=== PATIENT | female | born 1985 | race Hispanic/Latino ===

== ENCOUNTER 2024-04-12 06:36 | Day surgery (SDC) | payer OTHER ==
[~2024-04-12] VITALS: Ht 154.9 cm; Wt 154.9 kg
[~2024-04-12 06:36] MED LIST: ALL DAY ALLERGY10 M4 PO; ARNUITY ELLIPT50 MCG; CYCLOBENZAPRINE10 MG PO; LEVOTHYROXINE75 MC1 PO; MIDAZOLAM HCL 5 MG/5 ML VIAL IV PRN; OMEPRAZOLE20 MG PO; VITAMIN D350 MC3 PO; fentaNYL citrate 100 MCG/2 ML VIAL IV PRN
[2024-04-12] MEDS ORDERED: MIDAZOLAM HCL 5 MG/5 ML VIAL ONE (06:39)
[2024-04-12] MEDS ORDERED: fentaNYL citrate 100 MCG/2 ML VIAL ONE (06:39)
[2024-04-12 06:54] VITALS: BP 126/65
[2024-04-12 06:56] VITALS: BP 126/65
[2024-04-12] MEDS ORDERED: LIDOCAINE HCL 1% 5 ML SDV INJ ONE (07:00)
[2024-04-12] MEDS ORDERED: IBLOOD GLUCOSE TEST STRIP 1 EA TEST VI PRN (07:00)
[2024-04-12] MEDS ORDERED: LACTATED RINGER'S 1,000 ML IV SCH (07:00)
--- NOTE | 2024-04-12 07:18 | NUR ---
SALAS AT BS. PT COMFORTABLE.
--- NOTE | 2024-04-12 07:36 | NUR ---
PT NOT AVAILABLE FOR VISIT. PROVIDED PRAYER.
--- NOTE | 2024-04-12 07:57 | NUR ---
04/12/24 0757 Jessica Bray PT TO PACU AWAKE AND ALERT DENIES PAIN AND NAUSEA.
[2024-04-12 08:16] VITALS: BP 122/76
--- NOTE | 2024-04-12 08:55 | OR ---
[facility] [address], [place] [address] Signed DATE OF OPERATION: 04/12/2024 SURGEON: Magalys Weaver MD PREOPERATIVE DIAGNOSES: 1. Right upper quadrant pain, epigastric pain, and left upper quadrant abdominal pain. 2. Heartburn. 3. Cholelithiasis. 4. Recent NSAID use. POSTOPERATIVE DIAGNOSES: 1. Mild patchy distal gastritis. 2. Tiny hiatal hernia. 3. Gastroesophageal junction at 32 cm. PROCEDURE: Esophagogastroduodenoscopy with CLOtest and biopsies of the antrum. ESTIMATED BLOOD LOSS: None. INDICATIONS: Shanna is a 38-year-old obese female, asked to see me for consideration of her symptoms. She was describing right upper quadrant epigastric abdominal pain. Today, she had left upper quadrant abdominal pain. She has four children total, all born vaginally. She said during her pregnancies the gallstones gave her some symptoms. She had a tubal and underwent a left laparoscopic salpingectomy in 2011. She thinks the gallstones have been bothering her since at least 2014. The ultrasound in August of this year at [facility] confirmed her multiple stones. The gallbladder wall is not thickened. The common bile duct measures 6 mm. She told me her neck bothers her quite a bit. She was taking ibuprofen and naproxen for a few days. She ended up with epigastric abdominal pain. She said Mylanta seemed to help. More recently, she has been on omeprazole and she is not quite sure if that is helped or not. After a long discussion in the office, she wanted to proceed with an upper endoscopy with biopsies to make sure she did not have an ulcer. I gave her a pamphlet on upper endoscopy. She understands the nature of the test. There is risk including, but not limited to gas bloating, crampy abdominal pain, bleeding, perforation requiring surgery, and missed diagnosis. She also understands the need for IV conscious sedation. She understands an adult person asked to take her home afterwards. She has expressed understanding and would like to proceed. Electronically Signed By: MAGALYS WEAVER MD 04/12/24 0855 PATIENT NAME: SHANNA LINDER OPERATIVE REPORT DATE OF : 89 REPORT #: [id number] PHYSICIAN: MAGALYS WEAVER MD PCP: TAMERA VELASQUEZ PA-C REPORT IS CONFIDENTIAL AND NOT TO BE RELEASED WITHOUT AUTHORIZATION [facility] [address], [place] [address] Signed PROCEDURE IN DETAIL: Shanna was taken into our endoscopy suite and placed in the supine semi-recumbent position. The posterior oropharynx was anesthetized with lidocaine spray. She was given a total of 5 mg of Versed and 100 mcg of fentanyl to cover the case. The adult gastroscope was introduced and advanced under direct visualization of camera. The duodenum and pyloric channel were completely unremarkable. In the antrum, she had four small patchy areas of inflammation, consider with some mild distal gastritis. It is possible these are from her NSAID use. We went and took a biopsy one of these areas along with a CLOtest for pathologic review and H pylori testing. Upon retroflexion of the scope, it looks like she might have just a very tiny hiatal hernia. The scope was withdrawn up through the area of the GE junction, which was compliant without stricture. Really minimal if any disruption to the Z-line. Her Z-line measures 32 cm from the incisors. There was no Stafford mucosa. There was no distal esophagitis. The middle and upper esophagus were unremarkable. After this, the gas was suctioned out, the gastroscope removed. Shanna tolerated the procedure quite well. RECOMMENDATIONS: I will see Shanna back in my office in 7 to 14 days to review her results. In the meantime, she will continue on her omeprazole. Magalys Weaver MD ALB/MODL /[id number] cc: MD Keshia Iniguez PA Patient Chart Electronically Signed By: MAGALYS WEAVER MD 04/12/24 0855 PATIENT NAME: SHANNA LINDER OPERATIVE REPORT DATE OF : 89 REPORT #: [id number] PHYSICIAN: MAGALYS WEAVER MD PCP: TAMERA VELASQUEZ PA-C REPORT IS CONFIDENTIAL AND NOT TO BE RELEASED WITHOUT AUTHORIZATION [facility] [address] [place] [address] [place] [address] Signed Copies: MAGALYS WEAVER MD ~ Electronically Signed By: MAGALYS WEAVER MD 04/12/24 0855 PATIENT NAME: TAI LINDERINE WILBER OPERATIVE REPORT DATE OF : 89 REPORT #: [id number] PHYSICIAN: MAGALYS WEAVER MD PCP: TAMERA VELASQUEZ PA-C REPORT IS CONFIDENTIAL AND NOT TO BE RELEASED WITHOUT AUTHORIZATION
--- NOTE | 2024-04-16 14:18 | PATH ---
[facility] [address] [facility] [place] [place] [address] Signed SPECIMEN(S): A ANTRUM/PYLORUS BIOPSY SPECIMEN SOURCE: A. ANTRUM/PYLORUS BIOPSY CLINICAL HISTORY: GERD, abdominal pain, mild gastritis, small hiatal hernia FINAL PATHOLOGIC DIAGNOSIS: Antrum/pylorus of stomach, biopsy: - Benign gastric mucosa with no significant pathologic alteration. - Negative for Helicobacter organisms by HE stain. - No ulcer, dysplasia, or intestinal metaplasia identified. [facility] MICROSCOPIC EXAMINATION: Histologic sections of all submitted blocks are examined by light microscopy. These findings, together with the gross examination, support the pathologic diagnosis. GROSS DESCRIPTION: The specimen, labeled and designated "Gerard Davalos, abdominal pain, mild gastritis, small hiatal hernia antrum/pylorus biopsy," is received in formalin and consists of one russ soft tissue fragment, 0.2 cm. Entirely submitted in (A1). VB (under the direct supervision of a pathologist) The Gross Description was prepared using a voice recognition system. The report was reviewed for accuracy; however, sound-alike word errors, addition and/or deletions may occur. If there is any question about this report, please contact Client Services. ADDITIONAL NOTES: Immunohistochemical and/or in situ hybridization studies if performed in this case included appropriate positive controls that reacted as expected. This test was developed and its performance characteristics determined by [facility]. It has not been cleared or approved by the U.S. Food and Drug Administration. The FDA has determined that such clearance or approval is not necessary. This test is used for clinical purposes. It should not be regarded as investigational or for research. [facility] is certified under the Clinical Laboratory Improvement PATIENT NAME: AMARI DAVALOS PATHOLOGY DATE OF : 89 REPORT #: [id number] PHYSICIAN: ISMAEL ABBOTT PCP: TAMERA VELASQUEZ PA-C REPORT IS CONFIDENTIAL AND NOT TO BE RELEASED WITHOUT AUTHORIZATION [address] [address] Signed Amendments of 1988 (CLIA) as qualified to perform high complexity clinical laboratory testing. PERFORMING LABORATORY: Technical component was performed by [facility], [address] [place] [id number] (CLIA# [id number]). Professional interpretation was performed by [facility], [address] [place] [phone] (CLIA#: [id number]). Diagnostician: Joshua Delacruz MD Pathologist Electronically Signed 04/16/2024 Copies: ~ PATIENT NAME: AMARI DAVALOS PATHOLOGY DATE OF : 89 REPORT #: [id number] PHYSICIAN: ISMAEL PATHOLOGY PCP: TAMERA VELASQUEZ PA-C REPORT IS CONFIDENTIAL AND NOT TO BE RELEASED WITHOUT AUTHORIZATION
== END 2024-04-12 08:25 | disposition home or self-care (01) ==
LOC: DS 06:36 → OPS 06:36
PROVIDERS: ATTEND Colon & Rectal Surgery
PROC: 0DB68ZX Excision of Stomach, Via Natural or Artificial Opening Endoscopic, Diagnostic (ICD-10-PCS; principal; 2024-04-12 07:30)
DX: K29.70 Gastritis, unspecified, without bleeding (principal); K44.9 Diaphragmatic hernia without obstruction or gangrene; E66.9 Obesity, unspecified; E03.9 Hypothyroidism, unspecified; Z79.899 Other long term (current) drug therapy; K80.10 Calculus of gallbladder with chronic cholecystitis without obstruction
CPT/HCPCS: 36415; 84703; 87077; 88305; G0500; J2250; J3010; J7121